=== PATIENT | male | born 1955 | race Caucasian/White ===

== ENCOUNTER → 2020-04-25 | Outpatient (CLI) | payer MEDICARE ==
[2020-04-25 16:53] LABS: AMYLASE 57 U/L (30-110); ANION GAP 11 (5-19); ASPARTATE AMINO TRANSFERASE 30 U/L (17-59); BLOOD UREA NITROGEN 13 mg/dL (7-20); CARBON DIOXIDE 26 mmol/L (22-30); CHLORIDE 99 mmol/L (98-107); CHOLESTEROL 228.11 mg/dL (0-200); GLUCOSE 110 mg/dL (75-110); POTASSIUM 4.4 mmol/L (3.6-5.0); TRIGLYCERIDES 48 mg/dL (<150)
[2020-04-25 17:04] LABS: DIRECT LDL 125 mg/dL (<100)
== END ==
LOC: OD 15:01
PROVIDERS: ATTEND Family Medicine
DX: E78.2 Mixed hyperlipidemia (principal); R10.9 Unspecified abdominal pain; E29.9 Testicular dysfunction, unspecified; R53.83 Other fatigue; Z12.5 Encounter for screening for malignant neoplasm of prostate; Z79.899 Other long term (current) drug therapy
CPT/HCPCS: 36415; 82150; 84450; 84460; 84443; 80048; 83036; 80061; G0103